=== PATIENT | female | born 1965 | race Caucasian/White ===

== ENCOUNTER 2017-07-20 09:27 | Emergency (ER) | payer OTHER ==
[2017-07-20 09:38] VITALS: BP 134/86; PULSE 62; RESP 14; TEMP 98.1; O2SAT 97
--- NOTE | 2017-07-20 09:53 | C.PDOC ---
History Of Present Illness 51 y/o female presents to ED with complaints of right third digit thickened, irregular nail with associated pain around nail bed since 09/2016. Patient states she wants finger to be checked out. She denies trauma, fever , discharge or any other complaints at this time. Time Seen by Provider: 07/20/17 09:35 Chief Complaint (Nursing): Finger,Hand,&Wrist History Per: Patient History/Exam Limitations: no limitations Onset/Duration Of Symptoms: Persistent Current Symptoms Are (Timing): Still Present Severity: Mild Past Medical History Reviewed: Historical Data, Nursing Documentation, Vital Signs Vital Signs: Last Vital Signs Temp 98.1 F 07/20/17 09:38 Pulse 62 07/20/17 09:38 Resp 14 07/20/17 09:38 BP 134/86 07/20/17 09:38 Pulse Ox 97 07/20/17 10:14 - Medical History PMH: Hyperlipidemia Surgical History: No Surg Hx Family History: States: No Known Family Hx - Social History Hx Tobacco Use: No Hx Alcohol Use: No Hx Substance Use: No - Immunization History Hx Tetanus Toxoid Vaccination: No Hx Influenza Vaccination: No Hx Pneumococcal Vaccination: No Review Of Systems Except As Marked, All Systems Reviewed And Found Negative. Constitutional: Negative for: Fever, Chills Musculoskeletal: Positive for: Hand Pain (right third digit) Skin: Negative for: Rash Neurological: Negative for: Weakness, Numbness Physical Exam - Physical Exam Appears: Well, Non-toxic, No Acute Distress Skin: Warm, Dry, No Rash Eye(s): bilateral: Normal Inspection Oral Mucosa: Moist Cardiovascular: Rhythm Regular Respiratory: Normal Breath Sounds, No Rales, No Rhonchi, No Wheezing Extremity: Capillary Refill (<2 seconds all digits ), No Deformity, Swelling ( mildly to right 3rd nail bed, mild erythematous, no paronychia/fluctuance ), Other (Right third nail irregular, thickened and discolored in appearance ) Extremity: Bilateral: Normal ROM Pulses: Left Radial: Normal, Right Radial: Normal Neurological/Psych: Oriented x3, Normal Sensation ED Course And Treatment O2 Sat by Pulse Oximetry: 97 (RA) Pulse Ox Interpretation: Normal Progress Note: Onychomycosis + possible bacterial superinfection/cellulitis of nailbed? PO Clindamycin given. Rxs for Clindamycin and Topical antifungal given. Patient instructed to follow up with PMD/clinic in 1-2 days, and undertands she should return to ED if symptoms worsen. Disposition Counseled Patient/Family Regarding: Diagnosis, Need For Followup, Rx Given - Disposition Referrals: [facility] [Outside] Disposition: HOME/ ROUTINE Disposition Time: 09:55 Condition: STABLE Prescriptions: Ciclopirox Olamine [Ciclopirox] 1 appl TP BID #1 bottle Clindamycin [Cleocin] 300 mg PO TID #21 cap Ibuprofen [Motrin Tab] 600 mg PO Q6 PRN #30 tab PRN Reason: fever/pain Instructions: Fungal Nail Infections, Cellulitis (Skin Infection), Adult (DC) Forms: [employer] (Faroese) Print Language: MALTESE - Clinical Impression Clinical Impression: Onychomycosis, Infected nailbed of finger - Scribe Statement The provider has reviewed the documentation as recorded by the Nicolas Suresh All medical record entries made by the Nicolas were at my direction and personally dictated by me. I have reviewed the chart and agree that the record accurately reflects my personal performance of the history, physical exam, medical decision making, and the department course for this patient. I have also personally directed, reviewed, and agree with the discharge instructions and disposition.
== END 2017-07-20 09:59 | disposition home or self-care (01) ==
LOC: C.ER 09:27
DX: B35.1 Tinea unguium (principal)

== ENCOUNTER 2018-04-17 10:18 | Emergency (ER) | payer OTHER ==
[2018-04-17] MEDS ORDERED: Aspirin 325 mg EC Tablets PO STA (10:44)
--- NOTE | 2018-04-17 10:46 | C.PDOC ---
History Of Present Illness 52 year old female, whose past medical history includes asthma, presents to the ED for evaluation of mid-sternal chest pain which began yesterday. Patient describes a tightness that occurs in intermittent episodes and last a few seco nds before it self resolves. Patient thought her symptoms may be caused by gas. Today, patient developed pain to her right upper back region. she has not taken any medication. She denies fever, chills, shortness of breath, dizziness, extremity numbness/weakness. Patient denies personal or family cardiac history. Time Seen by Provider: 04/17/18 10:38 Chief Complaint (Nursing): Chest Pain History Per: Patient History/Exam Limitations: no limitations Onset/Duration Of Symptoms: Hrs, Intermittent Episodes Current Symptoms Are (Timing): Still Present Quality: Tightness, "Pain" Additional History Per: Patient Past Medical History Reviewed: Historical Data, Nursing Documentation, Vital Signs Vital Signs: Last Vital Signs Temp 98.3 F 04/17/18 10:23 Pulse 72 04/17/18 10:23 Resp 20 04/17/18 10:23 BP 129/76 04/17/18 10:23 Pulse Ox 100 04/17/18 10:23 - Medical History PMH: Hyperlipidemia Surgical History: No Surg Hx Family History: States: Unknown Family Hx - Social History Hx Tobacco Use: No Hx Alcohol Use: No Hx Substance Use: No - Immunization History Hx Tetanus Toxoid Vaccination: No Hx Influenza Vaccination: No Hx Pneumococcal Vaccination: No Review Of Systems Cardiovascular: Positive for: Chest Pain (mid-sternal ) Respiratory: Negative for: Shortness of Breath Musculoskeletal: Positive for: Back Pain (right, upper ) Neurological: Negative for: Weakness, Numbness, Dizziness Physical Exam - Physical Exam Appears: Non-toxic, No Acute Distress, Other (obese ) Skin: Normal Color, Warm, Dry Head: Atraumatic, Normacephalic Eye(s): bilateral: Normal Inspection Oral Mucosa: Moist Neck: Supple Chest: Symmetrical, No Deformity, Tenderness (mid-sternal chest wall ) Cardiovascular: Rhythm Regular, No Murmur Respiratory: Normal Breath Sounds, No Rales, No Rhonchi, No Wheezing Back: No CVA Tenderness, No Vertebral Tenderness, No Paraspinal Tenderness Extremity: Normal ROM, No Pedal Edema, Capillary Refill (less than 2 seconds ) Neurological/Psych: Oriented x3, Normal Speech, Normal Cognition ED Course And Treatment - Laboratory Results Result Diagrams: 04/17/18 10:50 04/17/18 10:50 Lab Interpretation: No Acute Changes ECG: Interpreted By Me, Viewed By Me ECG Rhythm: Sinus Rhythm ECG Interpretation: No Acute Changes Rate From EC O2 Sat by Pulse Oximetry: 100 (on RA) Pulse Ox Interpretation: Normal - Other Rad CXR X-Ray: Viewed By Me, Read By Radiologist Interpretation: Date of service: 04/17/2018. HISTORY: Chest pain. COMPARISON: No prior. TECHNIQUE: Chest PA and lateral. FINDINGS: LINES AND TUBES: None. LUNG AND PLEURA: The lungs are well inflated and clear. No pleural effusion or pneumothorax. HEART AND MEDIASTINUM: The heart is not enlarged. No aortic atherosclerotic calcification present. The hilar and mediastinal contours are within normal limits. SKELETAL STRUCTURES: The bony structures are within normal limits for the patient's age. VISUALIZED UPPER ABDOMEN: Normal. OTHER FINDINGS: There are nonspecific lobular calcifications lateral to the right chest wall. IMPRESSION: No active pulmonary disease. Medical Decision Making Medical Decision Making: Impression: 52 year old female with mid-sternal chest pain Plan: * bloodwork * urinalysis * CXR * EKG * Aspirin PO * reassess and disposition Progress: Bloodwork, urinalysis, CXR, EKG ordered and reviewed. All findings negative and unremarkable. On reassessment, patient is resting comfortably, showing no signs of distress and reports an improvement in her symptoms. Patient is stable for discharge. She is advised to follow up with her PMD within 1-2 days for further evaluation and understands to return to the ED if symptoms persist or worsen. Disposition Counseled Patient/Family Regarding: Diagnosis, Need For Followup, Rx Given - Disposition Referrals: Dallas Garcia MD [Staff Provider] - Disposition: HOME/ ROUTINE Disposition Time: 11:55 Condition: GOOD Additional Instructions: Thank you for letting us take care of you today. The emergency medical care you received today was directed at your acute symptoms. If you were prescribed any medication, please fill it and take as directed. It may take several days for your symptoms to resolve. Return to the Emergency Department if your symptoms worsen, do not improve, or if you have any other problems. Please contact your doctor or call one of the physicians/clinics you have been referred to that are listed on the Patient Visit Information form that is included in your discharge packet. Bring any paperwork you were given at discharge with you along with any medications you are taking to your follow up visit. Our treatment cannot replace ongoing medical care by a primary care provider (PCP) outside of the emergency department. Thank you for allowing the [facility] team to be part of your care today. Prescriptions: Ibuprofen [Motrin] 600 mg PO Q8 #30 tab Instructions: Pleuritic Chest Pain (DC) Forms: Proviation (Swedish) - POA Present On Arrival: None - Clinical Impression Clinical Impression: Pleuritic pain - PA / PATIENT CARE SECRETARY / Resident Statement MD/DO has reviewed & agrees with the documentation as recorded. - Scribe Statement The provider has reviewed the documentation as recorded by the Scribe (Kim Galicia) All medical record entries made by the Scribe were at my direction and personally dictated by me. I have reviewed the chart and agree that the record accurately reflects my personal performance of the history, physical exam, medical decision making, and the department course for this patient. I have also personally directed, reviewed, and agree with the discharge instructions and disposition.
[2018-04-17] MEDS ORDERED: Aspirin 325 mg EC Tablets PO ONE (10:54)
[2018-04-17 10:57] LABS: EOS # 0.1 K/uL (0.0-0.7); EOS % 1.4 % (0.0-4.0); HEMOGLOBIN 12.1 g/dL (11.0-16.0); LYMPH # 2.4 K/uL (1.0-4.3); LYMPH % 54.9 % (20.0-40.0); MEAN CORPUSCULAR HEMOGLOBIN 31.4 pg (27.0-31.0); MEAN CORPUSCULAR HGB CONC 33.2 g/dL (33.0-37.0); MEAN PLATELET VOLUME 9.2 fL (7.2-11.7); MONO # 0.5 K/uL (0.0-0.8); MONO % 11.3 % (0.0-10.0); NEUT # 1.4 K/uL (1.8-7.0); NEUT % 31.4 % (50.0-75.0); NRBC % 0.1 % (0.0-2.0); RBC 3.87 Mil/uL (3.80-5.20); RED CELL DISTRIBUTION WIDTH 12.6 % (11.5-14.5); WHITE BLOOD COUNT 4.4 K/uL (4.8-10.8)
[2018-04-17 10:58] LABS: MEAN CELL VOLUME 94.5 fL (81.0-99.0)
[2018-04-17 11:06] LABS: INR 1.1; PROTHROMBIN TIME 11.5 SECONDS (9.7-12.2)
[2018-04-17 11:09] LABS: ALB/GLOB RATIO 1.4 (1.0-2.1); ALBUMIN 4.4 g/dL (3.5-5.0); ALT/SGPT 23 U/L (9-52); AST/SGOT 20 U/L (14-36); BLOOD UREA NITROGEN 13 mg/dL (7-17); CALCIUM 9.1 mg/dl (8.6-10.4); GFR NON-AFRICAN AMERICAN > 60; HDL CHOLESTEROL 42 mg/dL (30-70)
[2018-04-17 11:20] LABS: CK-MB 0.48 ng/mL (0.0-3.38); LDL CHOLESTEROL 57 mg/dL (0-129)
[2018-04-17 11:23] LABS: SQUAMOUS EPITHIAL 1 /hpf (0-5); URINE BILIRUBIN NEGATIVE (NEGATIVE); URINE BLOOD NEGATIVE (NEGATIVE); URINE CLARITY Clear (Clear); URINE COLOR Straw (YELLOW); URINE GLUCOSE (UA) NORMAL (Normal); URINE LEUKOCYTE ESTERASE NEG Leu/uL (Negative); URINE PROTEIN NEGATIVE (NEGATIVE); URINE UROBILINOGEN NORMAL mg/dL (0.2-1.0)
--- NOTE | 2018-04-17 11:49 | RAD ---
Date of service: 04/17/2018 HISTORY: Chest pain COMPARISON: No prior. TECHNIQUE: Chest PA and lateral FINDINGS: LINES AND TUBES: None. LUNG AND PLEURA: The lungs are well inflated and clear. No pleural effusion or pneumothorax. HEART AND MEDIASTINUM: The heart is not enlarged. No aortic atherosclerotic calcification present. The hilar and mediastinal contours are within normal limits. SKELETAL STRUCTURES: The bony structures are within normal limits for the patient's age. VISUALIZED UPPER ABDOMEN: Normal. OTHER FINDINGS: There are nonspecific lobular calcifications lateral to the right chest wall. IMPRESSION: No active pulmonary disease.
[2018-04-17 11:56] VITALS: BP 104/71; PULSE 69; RESP 18; TEMP 98.1; O2SAT 100
--- NOTE | 2018-04-23 17:07 | CARD ---
APPROVED REPORT Date of service: 04/17/2018 EKG Measurement Heart [id number] <Conclusion> Normal sinus rhythm Septal infarct, age undetermined Abnormal ECG
== END 2018-04-17 11:56 | disposition home or self-care (01) ==
LOC: C.ER 10:18
DX: R07.81 Pleurodynia (principal); E78.5 Hyperlipidemia, unspecified

== ENCOUNTER 2018-09-07 07:11 | Day surgery (SDC) | payer OTHER ==
--- NOTE | 2018-09-07 07:42 | CP.SDSHP ---
<Lila Galicia - Last Filed: 09/07/18 07:39> Same Day Surgery H & P - History Proposed Procedure: EGD Pre-Op Diagnosis: epigastric pain. change in bowel habit - Previous Medical/Surgical History Misc: Other (hypercholestrolemia) Previous Surgical History: . SONAL/BSO. hernia repair - Allergies Allergies: Allergies No Known Allergies Allergy (Verified 06/07/16 10:55) - Current Medications Current Medications: lovastatin omeprazole - Physical Exam General Appearance: no acute distress Mental Status: Alert & Oriented x3 Neuro: WNL Heart: WNL Lungs: WNL GI: WNL - {Optional Preform as Required} Abdomen: WNL - Impression Impression: epigastric pain Pt. Evaluated Today:Candidate for Anesthesia & Procedure: Yes - Date & Time Date: 09/07/18 Time: 07:40 Short Stay Discharge - Short Stay Discharge Admitting Diagnosis/Reason for Visit: EPIGASTRIC PAIN,EPIGASTRIC ABDOMINAL TENDERNESS Disposition: HOME/ ROUTINE <Holden Doyle - Last Filed: 09/07/18 09:06> Same Day Surgery H & P - Allergies Allergies: Allergies No Known Allergies Allergy (Verified 06/07/16 10:55) - Physical Exam Vital Signs: Vital Signs 09/07/18 07:45 Temperature 97.6 F Pulse Rate 67 Respiratory 19 Rate Blood Pressure 127/72 O2 Sat by Pulse 100 Oximetry Attending/Attestation - Attestation I have personally seen and examined this patient.: Yes I have fully participated in the care of the patient.: Yes I have reviewed all pertinent clinical information: Yes Notes (Text): 09/07/18 09:05 patient with epigastric pain, hearturn Risks/benefits of procedure discussed and understood.
[2018-09-07 07:54] VITALS: BMI 35.5
[2018-09-07] MEDS ORDERED: Lactated Ringer's 500 ML IV ONE (09:03)
[2018-09-07] MEDS ORDERED: Propofol 10 mg/ml Inj (20 ML) ONE (09:06)
[2018-09-07] MEDS ORDERED: Midazolam 2 MG/2 ML VIAL ONE (09:06)
[2018-09-07 12:50] VITALS: BP 118/78; PULSE 66; RESP 14; TEMP 98.4
[2018-09-07 13:02] VITALS: O2SAT 99
== END 2018-09-07 10:50 | disposition home or self-care (01) ==
LOC: C.ENDO 07:11
PROVIDERS: ATTEND Internal Medicine Gastroenterology
DX: K29.50 Unspecified chronic gastritis without bleeding (principal); B96.81 Helicobacter pylori [H. pylori] as the cause of diseases classified elsewhere; K21.9 Gastro-esophageal reflux disease without esophagitis; R10.13 Epigastric pain; R19.4 Change in bowel habit; E78.5 Hyperlipidemia, unspecified; Z79.899 Other long term (current) drug therapy
CPT/HCPCS: 43239; 88305; 88312; 88313; 88342; J2001; J2704; J7120